=== PATIENT | female | born 1985 | race Caucasian/White ===

== ENCOUNTER 2020-09-28 01:24 | Inpatient (IN) | payer OTHER ==
[~2020-09-28] VITALS: Ht 160 cm; Wt 55.3 kg
[2020-09-28 01:55] LABS: HEMOGLOBIN 10.2 gm/dl (12.3-15.3); RED BLOOD COUNT 3.86 M/UL (4.00-5.10); WHITE BLOOD COUNT 10.7 K/UL (4.5-11.0)
[2020-09-29 06:27] LABS: HEMOGLOBIN 7.5 gm/dl (12.3-15.3)
[2020-09-29] MEDS ORDERED: DERMOPLAST PAIN56 GM TOP (16:56)
[2020-09-29] MEDS ORDERED: POLYETHYLENE GL17 GM PO (16:56)
[2020-09-29] MEDS ORDERED: IBUPROFEN600 MG PO (16:56)
[2020-09-29] MEDS ORDERED: DOCUSATE SODIU100 MG PO (16:56)
== END 2020-09-29 16:59 | disposition home or self-care (01) | DRG 768 ==
LOC: GENOP 01:24 → OB 01:56
PROVIDERS: ADMIT Obstetrics & Gynecology
PROC: 10E0XZZ Delivery of Products of Conception, External Approach (ICD-10-PCS; principal; 2020-09-28)
PROC: 0DQP0ZZ Repair Rectum, Open Approach (ICD-10-PCS; 2020-09-28)
PROC: 4A1HXCZ Monitoring of Products of Conception, Cardiac Rate, External Approach (ICD-10-PCS; 2020-09-28)
DX: O99.344 Other mental disorders complicating childbirth (principal); Z37.0 Single live birth; D62 Acute posthemorrhagic anemia; Z3A.38 38 weeks gestation of pregnancy; Z20.822 Contact with and (suspected) exposure to COVID-19; O90.81 Anemia of the puerperium
CPT/HCPCS: 36415; 82800; 85014; 85018; 85025; 90471; 90715; J0690; J1885; J2590; U0002